=== PATIENT | female | born 1940 | race Caucasian/White ===

== ENCOUNTER 2017-03-06 09:49 | Emergency (ER) | payer MEDICARE, OTHER ==
[~2017-03-06] VITALS: Ht 157.5 cm; Wt 80.7 kg
[2017-03-06] MEDS ORDERED: PAMI30VI8 SQ (10:09)
[2017-03-06] MEDS ORDERED: LANTUS (10:10)
[2017-03-06] MEDS ORDERED: ANTACID SUSP 30 ML UDC (MYLANTA) PO ONE (10:45)
[2017-03-06] MEDS ORDERED: ONDANSETRON 4 MG/2 ML (SDV) Z0FRAN IVP ONE (10:45)
[2017-03-06] MEDS ORDERED: LIDOCAINE 2% VISCOUS 15 ML UDC PO ONE (10:45)
[2017-03-06 10:55] LABS: BILIRUBIN,URINE NEGATIVE (NEGATIVE); KETONES,URINE NEGATIVE (NEGATIVE); LEUKOCYTE ESTERASE ,URINE 2+ (NEGATIVE); NITRITE,URINE NEGATIVE (NEGATIVE); PH,URINE 7 (5-9); PROTEIN,URINE 1+ (NEGATIVE); UROBILINOGEN,URINE NORMAL (NORMAL)
[2017-03-06 10:59] LABS: BASOPHILS % (AUTO) 0 % (0-10); EOSINOPHILS # (AUTO) 0.1 10^3/uL (0.0-0.3); EOSINOPHILS % (AUTO) 3 % (0-10); LYMPHOCYTES # (AUTO) 1.4 X 10^3 (1.0-4.0); LYMPHOCYTES % (AUTO) 30 % (12-44); MEAN CORPUSCULAR HEMOGLOBIN 29 PG (25-34); MEAN CORPUSCULAR HGB CONC 34 G/DL (32-36); MEAN CORPUSCULAR VOLUME 86 FL (80-99); MEAN PLATELET VOLUME 12.8 FL (7.4-10.4); MONOCYTES # (AUTO) 0.3 X 10^3 (0.0-1.0); MONOCYTES % (AUTO) 7 % (0-12); NEUTROPHILS # (AUTO) 2.8 X 10^3 (1.8-7.8); NEUTROPHILS % (AUTO) 60 % (42-75); PLATELET COUNT 181 10^3/uL (130-400); RED BLOOD COUNT 4.89 10^6/uL (4.35-5.85); WHITE BLOOD COUNT 4.6 10^3/uL (4.3-11.0)
--- NOTE | 2017-03-06 11:12 | Diagnostic Imaging Report ---
INDICATION: Pain, nausea, and vomiting. FINDINGS: The bowel gas pattern is unremarkable. There is no pathological luminal dilatation. No abnormal fecal loading. A spinal stimulator is noted. There are vascular calcifications. No acute osseous pathology. IMPRESSION: No acute appearing abnormality. Dictated by: Dictated on workstation # [id number]
[2017-03-06 11:13] LABS: ALANINE AMINOTRANSFERASE 9 U/L (0-55); ANION GAP 9 MMOL/L (5-14); ASPARTATE AMINO TRANSFERASE 12 U/L (5-34); BILIRUBIN,TOTAL 0.7 MG/DL (0.1-1.0); BLOOD UREA NITROGEN 13 MG/DL (7-18); BUN/CREATININE RATIO 18; CALCIUM 8.8 MG/DL (8.5-10.1); CARBON DIOXIDE 26 MMOL/L (21-32); CHLORIDE 102 MMOL/L (98-107); CREATININE SERUM 0.73 MG/DL (0.60-1.30); GFR ESTIMATED > 60; GLUCOSE 310 MG/DL (70-105); LIPASE 18 U/L (8-78); POTASSIUM 3.8 MMOL/L (3.6-5.0); SODIUM 137 MMOL/L (135-145); TOTAL PROTEIN 6.1 G/DL (6.4-8.2)
--- NOTE | 2017-03-06 11:59 | ED GI ---
General Chief Complaint: Abdominal/GI Problems Stated Complaint: VOMITING/NAUSEA Nursing Triage Note: TO ROOM 06 WITH COMPLAINTS OF N/V EVERY MORNING X2 MONTHS. STATES SHE HAS A HX OF ULCERS AND THINKS IT IS THAT. Sepsis Screen: No Definite Risk Source of Information: Patient Exam Limitations: No Limitations History of Present Illness Time Seen By Provider: 10:30 Initial Comments This 76-year-old woman presents to the emergency room with complaints of nausea every morning upon waking. She also sometimes has associated dizziness when she wakes in the morning. She does not believe it is associated with hypoglycemia although she does take insulin for her diabetes. She has been mildly constipated recently. She recently moved back to [place] from the [place] area. She has been seeing Dr. Yates in [place] but would like to see a physician in [place] now but she lives here. She saw Aaliyah Alas previously. She has loss of appetite. She has not been vomiting. She has been feeling somewhat depressed since her about one year ago. She also has problems with anxiety. She reports a history of ulcer and review of her chart notes and EGD performed in 2009 with biopsies revealing H. pylori. She also has a history of acid reflux and is not presently on any antacid medication. She also reports stability with falls recently. She inquires about the potential for physical therapy or rehabilitation services. Allergies and Home Medications Allergies Coded Allergies: No Known Drug Allergies (Unverified , 03/06/17) Home Medications Cephalexin 500 Mg Capsule, 500 MG PO QID, #28 Prescribed by: BOOKER ARRIAGA on 03/06/17 1201 Insulin Lispro 100 Unit/1 Ml Cartridge, 50 UNIT SQ, (Reported) Omeprazole 20 Mg Capsule.dr, 20 MG PO DAILY, #30 Prescribed by: BOOKER ARRIAGA on 03/06/17 1201 Ondansetron 4 Mg Tab.rapdis, 4 MG SL Q4H PRN for NAUSEA/VOMITING-1ST LINE, #10 Prescribed by: BOOKER ARRIAGA on 03/06/17 1201 [Lantus] , (Reported) Review of Systems Constitutional: see HPI, weakness EENTM: No Symptoms Reported Respiratory: No Symptoms Reported Cardiovascular: No Symptoms Reported Genitourinary: No Symptoms Reported Musculoskeletal: see HPI Skin: no symptoms reported Psychiatric/Neurological: No Symptoms Reported Endocrine: No Symptoms Reported Hematologic/Lymphatic: No Symptoms Reported Past Brhvwsl-Mdzcxt-Kixnwp Hx Patient Social History Alcohol Use: Denies Use Recreational Drug Use: No Smoking Status: Never a Smoker Recent Foreign Travel: No Contact w/Someone Who Travel: No Recent Infectious Disease Expo: No Recent Hopitalizations: No Surgeries HX Surgeries: Yes (BACK SURGERY WITH A STIMULATOR PUT IN) Surgeries: Abdominal (EGD with biopsies), Orthopedic (nerve stimulator implant) Respiratory Hx Respiratory Disorders: No Cardiovascular Hx Cardiac Disorders: No Neurological Hx Neurological Disorders: No Reproductive System : No Genitourinary Hx Genitourinary Disorders: No Gastrointestinal Hx Gastrointestinal Disorders: Yes (gastritis with positive H. pylori biopsies) Gastrointestinal Disorders: Gastroesophageal Reflux, Ulcer Musculoskeletal Hx Musculoskeletal Disorders: Yes Musculoskeletal Disorders: Arthritis, Chronic Back Pain Endocrine Endocrine Disorders: Diabetes, Insulin dep HEENT HX ENT Disorders: No Cancer Hx Cancer: No Psychosocial Hx Psychiatric Problems: Yes Behavioral Health Disorders: Anxiety Physical Exam Vital Signs VS - Last 72 Hours, by Label 03/06/17 03/06/17 10:00 12:16 Temp 97.6 Pulse 76 64 Resp 16 16 B/P (MAP) 163/72 Pulse Ox 98 Capillary Refill : Less Than 3 Seconds General Appearance: WD/WN, no apparent distress HEENT: PERRL/EOMI, normal ENT inspection Neck: normal inspection Respiratory: lungs clear, normal breath sounds, no respiratory distress, no accessory muscle use Cardiovascular: regular rate, rhythm, no edema, no murmur Gastrointestinal: normal bowel sounds, soft, tenderness (in the epigastrium) Extremities: normal inspection, no pedal edema Neurologic/Psychiatric: certified ethical hacker II-XII nml as tested, no motor/sensory deficits, alert, normal mood/affect, oriented x 3 Skin: normal color, warm/dry Progress/Results/Core Measures Results/Orders Lab Results Laboratory Tests Test 03/06/17 10:14 03/06/17 10:50 Range/Units White Blood Count 4.6 4.3-11.0 10^3/uL Red Blood Count 4.89 4.35-5.85 10^6/uL Hemoglobin 14.2 11.5-16.0 G/DL Hematocrit 42 35-52 % Mean Corpuscular Volume 86 80-99 FL Mean Corpuscular Hemoglobin 29 25-34 PG Mean Corpuscular Hemoglobin Concent 34 32-36 G/DL Red Cell Distribution Width 12.0 10.0-14.5 % Platelet Count 181 130-400 10^3/uL Mean Platelet Volume 12.8 H 7.4-10.4 FL Neutrophils (%) (Auto) 60 42-75 % Lymphocytes (%) (Auto) 30 12-44 % Monocytes (%) (Auto) 7 0-12 % Eosinophils (%) (Auto) 3 0-10 % Basophils (%) (Auto) 0 0-10 % Neutrophils # (Auto) 2.8 1.8-7.8 X 10^3 Lymphocytes # (Auto) 1.4 1.0-4.0 X 10^3 Monocytes # (Auto) 0.3 0.0-1.0 X 10^3 Eosinophils # (Auto) 0.1 0.0-0.3 10^3/uL Basophils # (Auto) 0.0 0.0-0.1 10^3/uL Sodium Level 137 135-145 MMOL/L Potassium Level 3.8 3.6-5.0 MMOL/L Chloride Level 102 98-107 MMOL/L Carbon Dioxide Level 26 21-32 MMOL/L Anion Gap 9 5-14 MMOL/L Blood Urea Nitrogen 13 7-18 MG/DL Creatinine 0.73 0.60-1.30 MG/DL Estimat Glomerular Filtration Rate > 60 BUN/Creatinine Ratio 18 Glucose Level 310 H 70-105 MG/DL Calcium Level 8.8 8.5-10.1 MG/DL Total Bilirubin 0.7 0.1-1.0 MG/DL Aspartate Amino Transf (AST/SGOT) 12 5-34 U/L Alanine Aminotransferase (ALT/SGPT) 9 0-55 U/L Alkaline Phosphatase 59 40-136 U/L Total Protein 6.1 L 6.4-8.2 G/DL Albumin 4.0 3.2-4.5 G/DL Lipase 18 8-78 U/L Urine Color YELLOW Urine Clarity CLEAR Urine pH 7 5-9 Urine Specific [place] 1.010 L 1.016-1.022 Urine Protein 1+ H NEGATIVE Urine Glucose (UA) 3+ H NEGATIVE Urine Ketones NEGATIVE NEGATIVE Urine Nitrite NEGATIVE NEGATIVE Urine Bilirubin NEGATIVE NEGATIVE Urine Urobilinogen NORMAL NORMAL MG/DL Urine Leukocyte Esterase 2+ H NEGATIVE Urine RBC (Auto) 5+ H NEGATIVE Urine RBC 25-50 H /HPF Urine WBC 2-5 /HPF Urine Squamous Epithelial Cells 2-5 /HPF Urine Crystals NONE /LPF Urine Bacteria FEW H /HPF Urine Casts NONE /LPF Urine Mucus NEGATIVE /LPF Urine Culture Indicated NO My Orders Orders - BOOKER MENDOZA MD Cbc With Automated Diff (03/06/17 10:41) Comprehensive Metabolic Panel (03/06/17 10:41) Lipase (03/06/17 10:41) Ua Culture If Indicated (03/06/17 10:41) Saline Lock/Iv-Start (03/06/17 10:41) Abdomen/Kub 1view (03/06/17 10:41) Ondansetron Injection (Zofran Injectio (03/06/17 10:45) Lidocaine 2% Viscous 15 Ml (Xylocaine Vi (03/06/17 10:45) Antacid Suspension (Mylanta Suspension (03/06/17 10:45) Helicobacter Pylori Irish Igg (03/06/17 10:41) Urine Culture (03/06/17 11:36) Medications Given in ED Current Medications Medications Dose Ordered Sig/Bryant Route Start Time Stop Time Status Last Admin Dose Admin Al Hydrox/Mg Hydrox/Simethicone 30 ml ONCE ONCE PO 03/06/17 10:45 03/06/17 10:46 DC 03/06/17 10:49 30 ML Lidocaine HCl 15 ml ONCE ONCE PO 03/06/17 10:45 03/06/17 10:46 DC 03/06/17 10:49 15 ML Ondansetron HCl 4 mg ONCE ONCE IVP 03/06/17 10:45 03/06/17 10:46 DC 03/06/17 10:48 4 MG Vital Signs/I&O Vital Sign - Last 12Hours 03/06/17 03/06/17 10:00 12:16 Temp 97.6 Pulse 76 64 Resp 16 16 B/P (MAP) 163/72 Pulse Ox 98 Blood Pressure Mean: 102 Progress Note : Progress Note Patient received Zofran and a GI cocktail which improved her nausea and tenderness. Workup was relatively unremarkable except for hematuria. See discharge instructions for discussion. I reviewed discharge instructions at length with the patient. She was strongly encouraged to follow up with her primary care provider regarding her problems. She needs a review on the H. pylori study and her urine cultures. She also needs to ensure her urine is checked again after completing antibiotics. She will need further workup if hematuria persists. Diagnostic Imaging Diagonstic Imaging: Xray Plain Films/CT/US/NM/MRI: abdomen, pelvis Comments NAME: ADRIENNE FULLER [facility] REC#: [id number] PT STATUS: REG ER : 1940 PHYSICIAN: BOOKER MENDOZA MD ADMIT DATE: 03/06/17/ER Draft Date of Exam:03/06/17 ABDOMEN/KUB 1VIEW INDICATION: Pain, nausea, and vomiting. FINDINGS: The bowel gas pattern is unremarkable. There is no pathological luminal dilatation. No abnormal fecal loading. A spinal stimulator is noted. There are vascular calcifications. No acute osseous pathology. IMPRESSION: No acute appearing abnormality. Dictated on workstation # [id number] Dict: 03/06/17 1108 Trans: 03/06/17 1112 [id number] Interpreted by: DONNIE COOPER Departure Impression Impression: Primary Impression: Nausea alone Additional Impressions: Epigastric abdominal tenderness Qualified Codes: R10.816 - Epigastric abdominal tenderness Hematuria Debility Disposition: HOME, SELF-CARE Condition: Stable Departure-Patient Inst. Decision time for Depature: 11:45 Referrals: NO,LOCAL PHYSICIAN (PCP/Family) Primary Care Physician Patient Instructions: Acute Abdomen (Belly Pain), Adult (DC) Add. Discharge Instructions: Abdominal pain and nausea: Start taking omeprazole daily. Use Zofran (ondansetron) as prescribed for nausea. Check your blood sugar when feeling nauseated. Establish with a primary care provider soon as possible. Have your primary care provider review your H. pylori test. Hematuria (blood in urine): Have your primary care provider review your urine culture after 48 hours. This will ensure you are on appropriate antibiotics if bacteria is growing in the culture. You also need to have your urine checked again after completing antibiotics to ensure the blood clears. If blood does not clear, you will need further workup for other possible disorders which could include serious diseases such as cancer or kidney disease. Debility: Follow-up with a primary care provider as soon as possible to discuss the potential for physical therapy or rehabilitation services to improve your strength and balance. Use a walker as necessary to ambulate safely. Return to the emergency room if symptoms worsen. All discharge instructions reviewed with patient and/or family. Voiced understanding. Scripts Ondansetron (Zofran Odt) 4 Mg Tab.rapdis 4 MG SL Q4H Y for NAUSEA/VOMITING-1ST LINE, #10 TAB Prov: BOOKER MENDOZA MD 03/06/17 Cephalexin (Keflex) 500 Mg Capsule 500 MG PO QID, #28 CAP Prov: BOOKER MENDOZA MD 03/06/17 Omeprazole (Omeprazole) 20 Mg Capsule. 20 MG PO DAILY, #30 CAP Prov: BOOKER MENDOZA MD 03/06/17 BOOKER MENDOZA MD Mar 06, 2017 11:59
[2017-03-06] MEDS ORDERED: ONDA4TAB8 SL (12:01)
[2017-03-06] MEDS ORDERED: CEPH-507 PO (12:01)
[2017-03-06] MEDS ORDERED: OMEP20CA12 PO (12:01)
[2017-03-06 12:16] VITALS: BP 177/69
== END 2017-03-06 12:16 | disposition home or self-care (01) ==
LOC: EDUNIT# 09:49 → ER 09:52
DX: R10.13 Epigastric pain (principal); R11.0 Nausea; R31.9 Hematuria, unspecified; F33.9 Major depressive disorder, recurrent, unspecified; K21.9 Gastro-esophageal reflux disease without esophagitis; E11.9 Type 2 diabetes mellitus without complications; R54 Age-related physical debility; Z79.4 Long term (current) use of insulin; Z97.8 Presence of other specified devices
CPT/HCPCS: 36415; 74000; 80053; 81000; 83690; 85025; 86677; 87088; 96374

== ENCOUNTER → 2017-07-16 | Outpatient (CLI) | payer MEDICARE, OTHER ==
[~2017-07-16] MED LIST: CATHETER FLUSH 10 ML SYR IV PRN; CEPH-507 PO; LANTUS; OMEP20CA12 PO; ONDA4TAB8 SL; PAMI30VI8 SQ; REGADENOSON 0.4 MG/5 ML SYR (LEXISCAN) IV ONE
[2017-07-16 08:21] VITALS: BP 212/76
--- NOTE | 2017-07-17 09:43 | STRESS TEST ---
DATE OF SERVICE: 07/16/2017 REFERRING PHYSICIAN: Quentin Alas DO IN SUMMARY: The patient was injected with 10.38 mCi of technetium-99 Myoview and the resting images were obtained. Then, the patient received 0.4 mg of Lexiscan followed by 32.7 mCi of technetium-99 Myoview. The test was supervised by Dr. Alas. The resting and stress images were reviewed and compared in the short axis, horizontal long axis, and vertical long axis views. Review of the images showed breast attenuation with some motion artifact. There is decreased uptake involving the basal to mid inferior wall and inferoseptum with subtle reversibility. SSS is 9, SDS 2, TID value 1.02. On the gated images, the left ventricle appeared to be normal size with normal contractility. Calculated ejection fraction 60%. CONCLUSION: 1. Breast attenuation with motion artifact, fixed defect at the basal to mid inferior wall and inferoseptum, no significant ischemia was noted. 2. Normal left ventricular size with normal contractility. Calculated ejection fraction 60%. Job ID: [id number] DocumentID: [id number] Dictated Date: 07/16/2017 18:32:07 Acquisition Manager Date: 07/17/2017 06:30:01 Dictated By: DAVID TAYLOR MD
== END ==
LOC: CARD 06:57
PROVIDERS: ATTEND Internal Medicine
DX: R07.9 Chest pain, unspecified (principal)
CPT/HCPCS: 78452; 93017